=== PATIENT | female | born 1995 | race Caucasian/White ===

== ENCOUNTER 2017-02-27 14:47 | Emergency (ER) | payer SELFPAY ==
[2017-02-27 14:52] VITALS: TEMP 98.2
[2017-02-27] MEDS ORDERED: ONDANSETRON 4 MG/2 ML VIAL IVP ONE (15:35)
[2017-02-27 15:45] LABS: % IMMATURE GRANULYOCYTES 0.5 % (0.0-1.1); ABSOLUTE IMMATURE GRANULOCYTES 0.05 10^3/uL (0.00-0.10); ADD DIFF? NO; ADD MORPH? NO; ADD SCAN? NO; ATYPICAL LYMPHOCYTE FLAG 20 (0-99); FRAGMENT RBC FLAG 0 (0-99); HEMATOCRIT 43.5 % (38.0-47.0); HEMOGLOBIN 14.8 g/dL (12.6-16.3); LEFT SHIFT FLG 10 (0-99); LIPEMIA HEMOLYSIS FLAG 90 (0-99); MEAN CELL HEMOGLOBIN 29.2 pg (27.9-34.1); MEAN PLATELET VOLUME 10.3 fL (8.7-11.7); PLATELET CLUMPS FLAG 0 (0-99); PLATELET COUNT 332 10^3/uL (150-400); RED BLOOD CELL COUNT 5.06 10^6/uL (4.18-5.33); RED CELL DISTRIBUTION WIDTH 13.1 % (11.5-15.2)
[2017-02-27 15:53] LABS: ANION GAP 13 mEq/L (8-16); CALCIUM 10.1 mg/dL (8.5-10.4); CARBON DIOXIDE 23 mEq/l (22-31); CHLORIDE 105 mEq/L (97-110); CREATININE 0.9 mg/dL (0.6-1.0); GLOMERULAR FILTRATION RATE > 60; GLUCOSE 87 mg/dL (70-100); POTASSIUM 3.7 mEq/L (3.5-5.2); SODIUM 141 mEq/L (134-144)
--- NOTE | 2017-02-27 16:47 | EDPHY ---
H & P Stated Complaint: Pain in abd x 3 days; + nausea, feels bloated;concern poss preg Time Seen by Provider: 02/27/17 16:42 HPI/ROS: CHIEF COMPLAINT: Abdominal pain. HISTORY OF PRESENT ILLNESS: The patient is a 21-year-old female who presents with left-sided abdominal pain that has been worsening over the past 3 days. She admits associated nausea, vomiting, bloating, weakness, and cough. The pain is constant and sharp in nature. She denies fever, urinary complaints, diarrhea , or other complaints. She denies history of similar pain. The pain is alleviated when she lies on her right side. She admits decreased appetite and the pain is worse when she eats. No fever, chills, chest pain, shortness of breath, palpitations, vomiting, diarrhea, urinary complaints, headache, lightheadedness. LNMP last week. Patient also reports that she has had discomfort and a popping sensation on the left lower chest wall since an episode of sneezing several months ago. Patient states that the discomfort she is having in her abdomen seems to aggravated the chest discomfort. She has had no history of pulmonary embolisms. No fever. No significant shortness of breath. REVIEW OF SYSTEMS: Aside from elements discussed in the HPI, a comprehensive 10-point review of systems was reviewed and is negative. PAST MEDICAL HISTORY: Sciatica. SOCIAL HISTORY: , smokes 2-3 cigarettes per day. VITAL SIGNS: Reviewed by me GENERAL: Well-developed, well-nourished, resting comfortably in no respiratory distress. HEENT: Atraumatic. Eyes: No icterus, no injection. Mouth: moist mucous membranes. No erythema or lesions. Neck: supple with no adenopathy. LUNGS: Clear to auscultation bilaterally, no wheezes, rhonchi or rales. No palpable tenderness of the chest wall. No rash. No crepitus. CARDIAC: Regular rate and rhythm, no rubs, murmurs or gallops. ABDOMEN: Soft, nondistended, bowel sounds normal. Left upper and left mid quadrant tenderness to deep palpation. No guarding or rebound.. BACK: No CVA tenderness. EXTREMITIES: No trauma. No edema. Range of motion is normal throughout. NEURO: Alert and oriented, grossly nonfocal. SKIN: Warm and dry, no rash. PSYCHIATRIC: Normal mentation, no agitation. Portions of this note were transcribed by a territory sales manager medical. I personally performed a history, physical exam, medical decision making, and confirmed accuracy of information the transcribed note. Source: Patient Exam Limitations: No limitations - Personal History LMP (Females 10-55): 1-7 Days Ago Current Tetanus Diphtheria and Acellular Pertussis (TDAP): Yes - Medical/Surgical History Other PMH: sciatica - Social History Smoking Status: Current every day smoker Constitutional: Initial Vital Signs Temperature (C) 36.8 C 02/27/17 14:49 Heart Rate 93 02/27/17 14:49 Respiratory Rate 18 02/27/17 14:49 Blood Pressure 113/87 H 02/27/17 14:49 O2 Sat (%) 97 02/27/17 14:49 O2 Delivery Mode Room Air Allergies/Adverse Reactions: No Known Allergies Allergy (Unverified 02/27/17 14:52) Home Medications: Medication Instructions Recorded NK [No Known Home Meds] 02/27/17 Medical Decision Making - Diagnostics Imaging Results: CT abdomen pelvis: Impression: 1. Mild gastric wall thickening, which could be secondary to incomplete distention or reflect a mild gastritis given her epigastric discomfort. 2. Trace amount of free fluid in the right pelvic cul-de-sac, which is a nonspecific finding but could represent rupture of an ovarian follicle given the appearance of the ovaries. 3. Mild urinary bladder wall thickening. Correlation with urinalysis is suggested. Findings were discussed with Keli Malloy MD at 20:05, on 02/27/2017. ED Course/Re-evaluation: 21-year-old female with no previous abdominal history presents with 3 days of worsening sharp left lower abdominal pain. An IV was established and labs ordered. 4mg IV Zofran administered for nausea along with 75mcg IV Fentanyl for pain. I reviewed the patient's laboratory studies. They are negative for acute abnormalities. Abdomen/pelvis CT ordered. 2008: CT results conveyed to me by radiology. No bowel obstruction. No evidence for pancreatitis, splenic pathology, constipation. The stomach is slightly thick walled , a finding which represent gastritis. Patient was reexamined. We again discussed her left sided chest discomfort which she states has been there for months, potentially last year, and started after she sneezed. I do not believe patient is at risk for pulmonary embolism. She is PERC negative. Her abdominal discomfort may be related to gastritis. She was advised to begin taking Protonix or Prilosec. She will follow up with the primary care physician. By history there is no evidence of a urinary tract infection and her urine is clean. Differential Diagnosis: After obtaining the patient's history and performing an examination, differential diagnosis considered included but was not limited to gastritis, cholecystitis, pancreatitis, kidney stones, kidney stone, bowel obstruction, lower lobe pneumonia, urinary tract infections and other causes. - Data Points Laboratory Results: Laboratory Results 02/27/17 15:20 02/27/17 15:20 Medications Given: Discontinued Medications Fentanyl (Sublimaze) 75 mcg IVP EDNOW ONE Stop: 02/27/17 18:28 Last Admin: 02/27/17 18:44 Dose: 75 mcg Pantoprazole Sodium 40 mg/ (Sodium Chloride) 100 mls @ 200 mls/hr IV EDNOW ONE Stop: 02/27/17 20:40 Last Admin: 02/27/17 20:34 Dose: 100 mls Sodium Chloride (Ns) 1,000 mls @ 0 mls/hr IV ONCE ONE PRN Reason: Wide Open Stop: 02/27/17 19:01 Last Admin: 02/27/17 19:00 Dose: 1,000 mls Ondansetron HCl (Zofran) 4 mg IVP EDNOW ONE Stop: 02/27/17 15:36 Last Admin: 02/27/17 15:52 Dose: 4 mg Departure - Departure Disposition: Home, Routine, Self-Care Clinical Impression: Gastritis Qualifiers: Gastritis type: unspecified gastritis Chronicity: acute Gastritis bleeding: without bleeding Qualified Code(s): K29.00 - Acute gastritis without bleeding Abdominal pain Qualifiers: Abdominal location: left upper quadrant Qualified Code(s): R10.12 - Left upper quadrant pain Condition: Good Instructions: Gastritis (ED) Additional Instructions: Follow up with your primary care provider for reevaluation if your symptoms persist for the next 1-2 days. If you need a primary care provider you have been given the telephone number of the on-call PCP. Take over the counter Prilosec for two weeks as discussed. Return for any serious worsening of condition. Referrals: Maria E Pardo MD [Medical Doctor] - As per Instructions Report Scribed for: Keli Malloy Report Scribed by: Edward Jordan Date of Report: 02/27/17 Time of Report: 16:47
[2017-02-27 17:36] VITALS: RESP 16
[2017-02-27] MEDS ORDERED: fentaNYL 100 MCG/2 ML INJ IVP ONE (18:27)
[2017-02-27 18:28] LABS: COLOR YELLOW; LEUKOCYTE ESTERASE,URINE NEGATIVE (NEGATIVE); NITRITE,URINE NEGATIVE (NEGATIVE)
[2017-02-27] MEDS ORDERED: NS 1,000 ML IV ONE (19:00)
[2017-02-27] MEDS ORDERED: IOPAMIDOL (ISOVUE-300) 100 ML BTL ONE (19:11)
[2017-02-27] MEDS ORDERED: PANTOPRAZOLE SODIUM 40 MG in NS 100 ML IV ONE (20:11)
[2017-02-27 20:40] VITALS: BP 98/68; PULSE 59; O2SAT 92
== END 2017-02-27 21:01 | disposition home or self-care (01) ==
DX: K29.00 Acute gastritis without bleeding (principal); R11.2 Nausea with vomiting, unspecified; F17.210 Nicotine dependence, cigarettes, uncomplicated
CPT/HCPCS: 96365; J2405; J3010; Q9967

== ENCOUNTER 2017-03-12 11:22 | Emergency (ER) | payer SELFPAY ==
[2017-03-12 11:28] VITALS: TEMP 97.7; O2SAT 97
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
[2017-03-12 12:56] VITALS: BP 115/77; PULSE 69; RESP 16
== END 2017-03-12 13:10 | disposition home or self-care (01) ==
PROC: 0CQ0XZZ Repair Upper Lip, External Approach (ICD-10-PCS; principal; 2017-03-12)
DX: S01.511A Laceration without foreign body of lip, initial encounter (principal); Z87.891 Personal history of nicotine dependence; W25.XXXA Contact with sharp glass, initial encounter